=== PATIENT | female | born 1990 | race Caucasian/White ===

== ENCOUNTER → 2016-08-05 | Outpatient (CLI) | payer MEDICAID ==
[~2016-08-05] MED LIST: IRON325 M1 PO; LEXAPRO DPS10 MG PO; MOTRIN-DPS800 MG PO; PRENATAL VIT1 TAB PO; PROVENTIL HFA6.7 GM IH
== END | disposition home or self-care (01) ==
LOC: RAD.S 13:30
DX: Z36 Encounter for antenatal screening of mother (principal); Z3A.28 28 weeks gestation of pregnancy

== ENCOUNTER 2016-10-30 03:22 | Inpatient (IN) | payer MEDICAID ==
[~2016-10-30] VITALS: Ht 170.2 cm; Wt 73.9 kg
[2016-11-02] MEDS ORDERED: IRON325 M1 PO (11:02)
[2016-11-02] MEDS ORDERED: PROVENTIL HFA6.7 GM IH ×2 (11:02→11:03)
[2016-11-02] MEDS ORDERED: PRENATAL VIT1 TAB PO (11:02)
[2016-11-02] MEDS ORDERED: LEXAPRO DPS10 MG PO (11:03)
[2016-11-02] MEDS ORDERED: MOTRIN-DPS800 MG PO (11:03)
--- NOTE | 2016-11-26 06:50 | HP ---
ADMIT: 10/30/2016 RM/LOC: 201 [facility] MR#: [id number] [address] [address] RATNA MAN [address] [place] [address] History and Physical SEX: F AGE: 26 : 1990 DATE OF SERVICE: HISTORY OF PRESENT ILLNESS: This is a 26-year-old, G5, P1-0-3-1 who presents to Labor and delivery with chief complaint of contractions and leaking of fluid. The patient reports her contractions started last night around 7 p.m. and have increased in intensity over the night. She awoke around 3 a.m. with a gush of fluid. She reported this fluid as clear, however, since presentation to the [facility]thing Center, the fluid has been stained with meconium. She denies vaginal bleeding. Reports normal movement. complicated by history of depression and asthma both of which were treated with medications. No other known complications. PAST MEDICAL HISTORY: She has a past medical history of depression, asthma, anemia, and allergic rhinitis. PAST SURGICAL HISTORY: She denies surgical history. MEDICATIONS: 1. Lexapro 10 mg daily. 2. Asmanex 30 mg metered doses 1 puff b.i.d. 3. vitamin. 4. Proventil HFA p.r.n. She denies other medications. SOCIAL HISTORY: Father of baby is the patient's significant other. She lives at home with her son who is 8 years old and her significant other. She denies tobacco use, alcohol use, or recreational drug use. REVIEW OF SYSTEMS: The patient denies headache, changes of vision, chest pain, or shortness of breath. She endorses abdominal pain with contractions. No pain in between contractions. No nausea, vomiting, diarrhea, or constipation. She endorses leaking of fluid. PHYSICAL EXAMINATION: VITAL SIGNS: The patient's blood pressure is 115/57, pulse 86, respiratory rate 16, temperature 97.2, she is saturating 98% on room air. GENERAL: Alert and oriented in no acute distress with contractions. HEART: Regular rate and rhythm. LUNGS: Clear to auscultation bilaterally. ABDOMEN: Gravid. Nontender to palpation. Contractions are palpating firm. EXTREMITIES: No edema in bilateral lower extremities. Sterile vaginal exam, 4, 60, -1 on my check at 5 o'clock. heart tones, baseline appears to be 135, positive accelerations, no decelerations. The patient lita every 2 minutes. LAB: The patient's blood type is A positive. Direct antibody testing negative. Rubella immune. Syphilis negative. HIV negative. ADMIT: 10/30/2016 RM/LOC: 201 [facility] MR#: [id number] [address] [address] [place] [address] History and Physical SEX: F AGE: 26 : 1990 Hepatitis negative. Gonorrhea and chlamydia negative. GBS positive. ASSESSMENT AND PLAN: This is a 26-year-old, G5, P1-0-3-1 with intrauterine at 39 weeks 5 days who presents to the Birthing Center with chief complaint of contractions and leaking of fluid. The patient found to be ruptured via AmniSure and cervical change was made. 1. Admit to the Birthing Center for active labor management. The patient was admitted and IV fluids were started per protocol. CBC was collected. Blood type A positive. Consent was obtained for vaginal delivery, assistive vaginal delivery or section if needed. 2. heart tones are reassuring category 1. 3. GBS positive, was administered antibiotic prophylaxis. The patient received one dose as of this time. 4. Asthma. We will continue home inhaler therapy. We will avoid Hemabate if possible following delivery. 5. Maternal well being. She is doing well but is requesting epidural. Given she is making cervical change and is ruptured, we will proceed with epidural placement at the time. This plan was discussed with attending physician, Dr. Reese Fagan. Laura Munson MD Resident / Reese Fagan MD / vanessal JOB #: [id number] CC: Reese Fagan, Attending Physician Reese Fagan, Family Physician
--- NOTE | 2016-11-26 06:50 | OR ---
ADMIT: 10/30/2016 RM/LOC: 201 [facility] MR#: [id number] [address] [address] [address] [place] [address] Operative/Delivery Room Report SEX: F AGE: 26 : 1990 SURGERY DATE: 10/30/2016 SURGEON: Reese Fagan MD PREOPERATIVE DIAGNOSES: 1. Intrauterine at 39 weeks and 5/7 days. 2. Active labor. 3. Irregular care. 4. Nicotine use during . 5. Group B streptococcus positive. POSTOPERATIVE DIAGNOSES: 1. Status post spontaneous vaginal delivery. 2. Status post epidural removal. 3. Intrauterine at 39 weeks and 5/7 days. 4. Active labor. 5. Irregular care. 6. Nicotine use during . 7. Group B streptococcus positive. PROCEDURES: 1. Spontaneous vaginal delivery. 2. Epidural removal. FINDINGS: 1. Live-born male born at 0754 hours with scores of 8 and 9 at 1 and 5 minutes respectively with a weight of 7 pounds 3.5 ounces (3270 g). 2. Intact placenta with 3-vessel cord. ANESTHESIA: Epidural. FLUIDS: Crystalloid. ESTIMATED BLOOD LOSS: 250 mL. COMPLICATIONS: None immediate. INDICATIONS FOR PROCEDURE: Please refer to dictated H and P. Briefly, Anjelica is a very pleasant 26-year-old, 5, para 1-0-3-1 with an intrauterine at 39 weeks 5/7 days. States at approximately 2:30 this morning had spontaneous rupture of membranes. She started to have contractions, presented to Labor and Delivery. She was found to be 2 cm dilated and quickly progressed to 5. She had epidural placed. There was some meconium amniotic fluid noted. The patient then rapidly progressed to complete and started pushing bringing the infant's vertex to the perineum. Continuous routine maternal monitoring was done throughout and was reassuring. DESCRIPTION OF PROCEDURE: The patient was in the dorsal lithotomy position ADMIT: 10/30/2016 RM/LOC: 201 [facility] MR#: [id number] [address] [address]ELICA [address] [place] [address] Operative/Delivery Room Report SEX: F AGE: 26 : 1990 draped in the usual fashion. Infant's vertex noted to be on the perineum. She was asked to push, delivering the head in MARCIA position. After restitution of the head, the anterior shoulder followed by the posterior shoulder and remainder of the infant was down without any difficulty. was noted to be vigorous and crying. Mouth and nares were bulb-suctioned. Infant dried and held below maternal pelvis for approximately 30-45 seconds for delayed clamping. Infant then transferred to the maternal abdomen, where nursing personnel were in attendance. Cord was clamped x2 and cut by the father. Cord blood obtained. Placenta delivered intact in less than 5 minutes. Twenty units of Pitocin was started in IV bag to help firm the uterus. Attention was then turned to the vaginal vault and cervix, which was noted to be free of lacerations. Examination of the uterus and fundus was noted to be firm. Attention then turned to the perineum which was also noted to be free of any lacerations. There were no other major complications or events during delivery. Sponge and needle counts were correct. The epidural was removed , and catheter was noted to be intact with blue tip. and mother were in stable condition upon my departure. Reese Fagan MD/ charlee JOB #: [id number] CC: Reese Fagan, Attending Physician Reese Fagan, Family Physician
--- NOTE | 2016-12-16 08:06 | DS ---
ADMIT: 10/30/2016 RM/LOC: [address] [facility] MR#: [id number] [address] [address] [address]NA [address] [place] [address] General Discharge Summary SEX: F AGE: 26 : 1990 ADMISSION DATE: 10/30/2016 DISCHARGE DATE: 11/01/2016 FINAL DIAGNOSES: 1. Status post spontaneous vaginal delivery of a live-born male, born at 0754 hours with scores of 8 and 9 at 1 and 5 minutes respectively, weight of 7 pounds 3.5 ounces. 2. Irregular care. 3. Nicotine use during . 4. Group B Streptococcus positive. 5. Depression. 6. Asthma. Reese Fagan MD/ modl JOB #: [id number] CC: Reese Fagan MD, Attending Physician Reese Fagan MD, Family Physician
== END 2016-11-01 14:05 | disposition home or self-care (01) | DRG 775 ==
LOC: 2LDRP 03:22 → BC 03:22 → 2LDRP 04:07 → BC 11-01 08:00 → 2LDRP 11-01 14:05
PROVIDERS: ADMIT Family Medicine
PROC: 10E0XZZ Delivery of Products of Conception, External Approach (ICD-10-PCS; principal; 2016-10-30)
DX: O99.824 Streptococcus B carrier state complicating childbirth (principal); O99.344 Other mental disorders complicating childbirth; F32.9 Major depressive disorder, single episode, unspecified; O99.334 Smoking (tobacco) complicating childbirth; F17.210 Nicotine dependence, cigarettes, uncomplicated; O77.0 Labor and delivery complicated by meconium in amniotic fluid; O99.52 Diseases of the respiratory system complicating childbirth; J45.909 Unspecified asthma, uncomplicated; Z3A.39 39 weeks gestation of pregnancy; Z37.0 Single live birth